=== PATIENT | female | born 1975 | race African-American/Black ===

== ENCOUNTER 2018-04-17 14:55 | Outpatient (CLI) | payer OTHER | END 2018-04-17 14:56 | disposition home or self-care (01) | LOC: BICMAMMO 14:55 | DX: Z12.31 Encounter for screening mammogram for malignant neoplasm of breast (principal); N64.89 Other specified disorders of breast | CPT/HCPCS: 77067 ==

== ENCOUNTER 2018-04-29 14:36 | Outpatient (CLI) | payer OTHER | END 2018-04-29 14:37 | disposition home or self-care (01) | LOC: BICMAMMO 14:36 | DX: R92.2 Inconclusive mammogram (principal) | CPT/HCPCS: G0279 ==

== ENCOUNTER 2021-04-30 13:17 | Emergency (ER) | payer OTHER, SELFPAY ==
[2021-04-30] MEDS ORDERED: Cyclobenzaprine 10 MG TAB ONE (13:48)
[2021-04-30] MEDS ORDERED: Acetaminophen 325 MG TAB ONE (13:48)
== END 2021-04-30 14:43 | disposition home or self-care (01) ==
LOC: ERS 13:17
DX: S16.1XXA Strain of muscle, fascia and tendon at neck level, initial encounter (principal); S29.012A Strain of muscle and tendon of back wall of thorax, initial encounter; S20.219A Contusion of unspecified front wall of thorax, initial encounter; V43.52XA Car driver injured in collision with other type car in traffic accident, initial encounter
CPT/HCPCS: 71046; 93005; 94760

== ENCOUNTER 2021-06-21 14:58 | Outpatient (CLI) | payer OTHER | END 2021-06-21 14:59 | disposition home or self-care (01) | LOC: ULT 14:58 | PROVIDERS: ATTEND Student in an Organized Health Care Education/Training Program | DX: N93.9 Abnormal uterine and vaginal bleeding, unspecified (principal); N83.201 Unspecified ovarian cyst, right side | CPT/HCPCS: 76856 ==

== ENCOUNTER 2022-06-19 14:00 | Outpatient (CLI) | payer OTHER | END 2022-06-19 14:01 | disposition home or self-care (01) | LOC: BICMAMMO 14:00 | PROVIDERS: ATTEND Family Medicine | DX: Z12.31 Encounter for screening mammogram for malignant neoplasm of breast (principal); Z91.89 Other specified personal risk factors, not elsewhere classified | CPT/HCPCS: 77063; 77067 ==

== ENCOUNTER 2023-02-28 15:42 | Outpatient (CLI) | payer OTHER | END 2023-02-28 15:43 | disposition home or self-care (01) | LOC: ULT 15:42 | PROVIDERS: ATTEND Family Medicine | DX: E04.1 Nontoxic single thyroid nodule (principal) | CPT/HCPCS: 76536 ==

== ENCOUNTER 2023-07-17 15:20 | Outpatient (CLI) | payer OTHER | END 2023-07-17 15:21 | disposition home or self-care (01) | LOC: BICMAMMO 15:20 | PROVIDERS: ATTEND Family Medicine | DX: Z12.31 Encounter for screening mammogram for malignant neoplasm of breast (principal); Z91.89 Other specified personal risk factors, not elsewhere classified | CPT/HCPCS: 77063; 77067 ==